=== PATIENT | male | born 1960 | race Caucasian/White ===

== ENCOUNTER 2023-08-07 06:30 | Day surgery (SDC) | payer BC ==
[2023-08-03 13:19] LABS: Absolute Lymphocytes (CBC) 1.7 K/uL (0.7-4.9); Hematocrit 44.6 % (39.6-49.0); Lymphocytes % 29.5 % (15.3-44.8); MCV 85.1 fL (80-100); MPV 9.1 fL (7.6-11.3); Platelets 194 thou/uL (152-406); RBC Red Blood Cell Count 5.24 M/uL (4.33-5.43)
[2023-08-03 13:40] LABS: Protime INR 1.12
[2023-08-07] MEDS ORDERED: NA CHLORIDE 0.9% 500 ML ONE (07:02)
[2023-08-07] MEDS ORDERED: HEPA 1000U/500MLS 2,000 UNIT/1,000 ML BAG IV ONE (07:04)
[2023-08-07] MEDS ORDERED: VERAPAMIL HCL 10 MG/4 ML VIAL IV ONE (07:05)
[2023-08-07] MEDS ORDERED: NITROGLYCERIN/D5W 50 MG/250 ML BTL IV ONE (07:05)
[2023-08-07] MEDS ORDERED: LIDOCAINE 1% 20 ML MDV ONE (07:05)
[2023-08-07] MEDS ORDERED: FENTANYL CITR 100 MCG/2 ML ONE (07:05)
[2023-08-07] MEDS ORDERED: HEPARIN 10,000 UNIT/10 ML VIAL IV ONE (07:06)
[2023-08-07] MEDS ORDERED: CLOPIDOGREL 75 MG TABLET ONE (07:06)
[2023-08-07] MEDS ORDERED: MIDAZOLAM HCL 2 MG/2 ML INJ ONE (07:06)
[2023-08-07] MEDS ORDERED: HEPARIN 5000 UNIT/ML 1 ML VIAL ONE (07:06)
[2023-08-07] MEDS ORDERED: TICAGRELOR 90 MG TABLET PO ONE (07:06)
[2023-08-07] MEDS ORDERED: ASPIRIN 325 MG TAB ONE (07:07)
[2023-08-07] MEDS ORDERED: REGADENOSON 0.4 MG/5 ML SYR IV ONE (08:20)
[2023-08-07] MEDS ORDERED: HEPA 1000U/500MLS 1,000 UNIT/500 ML BAG IV ONE (08:23)
[2023-08-07] MEDS ORDERED: ADENOSINE 6 MG/ 2ML VIAL IV ONE (08:31)
[2023-08-07 12:22] VITALS: BP 120/68; O2SAT 98
--- NOTE | 2023-08-07 13:57 | EKG ---
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
[2023-08-07] MEDS ORDERED: AMIODARONE IN DEXTROSE,ISO-OSM 0 MG/0 ML BAG IV ONE (14:06)
== END 2023-08-07 11:55 | disposition home or self-care (01) ==
LOC: CCL 06:30
PROVIDERS: ATTEND Internal Medicine
DX: I25.10 Atherosclerotic heart disease of native coronary artery without angina pectoris (principal); I25.82 Chronic total occlusion of coronary artery; I35.1 Nonrheumatic aortic (valve) insufficiency; I34.0 Nonrheumatic mitral (valve) insufficiency; I10 Essential (primary) hypertension; E78.5 Hyperlipidemia, unspecified; Z79.899 Other long term (current) drug therapy
CPT/HCPCS: 93005; 85025; 80048; 36415; 85610; 85347; 85730; 93458; 76937; 93571; C1893; Q9967; J1644; J2785; J2001; J2250; J3010; J7040; C1769; 93454; 99152; 99153; J0153; J0282